=== PATIENT | male | born 1955 | race African-American/Black ===

== ENCOUNTER 2017-03-30 18:26 | Emergency (ER) | payer MEDICARE, MEDICAID ==
[~2017-03-30] VITALS: Ht 188 cm; Wt 100.0 kg
[~2017-03-30 18:26] MED LIST: AMIODARONE; ASA; ASPI-1079 PO; CALC0.25; CARV25TA47 PO; CARVEDILOL; DRON5CAP2 PO; HYDR2TAB4 PO; HYDROMORPHONE; INSLIS SQ; INSU3INS6 SUBCUT; INSULIN; LACT1CAP68 PO; LISI10TA5 PO; LISINOPRIL; METH10TA7 PO; WARF3TAB28 PO; WARFARIN; [UNRECOGNIZED DRUG - CODE]
[2017-03-30] MEDS ORDERED: IPRATROPIUM/ALBUTEROL 0.5-3(2.5)MG/3ML NEB HHN ONE (19:15)
[2017-03-30 19:46] LABS: BASOPHILS % 0.6 % (0.0-2.0); HEMATOCRIT. 26.3 % (42.0-52.0); HEMOGLOBIN. 8.4 g/dL (14.0-18.0); MEAN CORPUSCULAR HEMOGLOBIN 27.2 pg (28.0-32.0); MEAN CORPUSCULAR VOLUME 84.9 fL (80.0-94.0); MEAN PLATELET VOLUME 8.5 fl (7.4-10.4); MONOCYTES % 11.4 % (2.0-8.0); PLATELET 183 x1000/uL (130-400); RED CELL DISTRIBUTION WIDTH 20.3 % (11.6-14.6)
[2017-03-30 19:55] LABS: INR 1.4; PROTHROMBIN TIME 14.3 sec (9.4-11.6)
[2017-03-30 20:06] LABS: CARBON DIOXIDE 25 mEq/L (21-32); CHLORIDE 94 mEq/L (98-107); TROPONIN I 0.21 ng/mL (0.00-0.04)
[2017-03-30] MEDS ORDERED: DEXTROSE 50% WATER 50ML SYRINGE IV ONE (20:30)
[2017-03-31] MEDS ORDERED: GUAIFENESIN 200MG/10ML SUGAR FREE UDC PO PRN
[2017-03-31] MEDS ORDERED: DIPHENHYDRAMINE 50MG/ML VIAL IV PRN
[2017-03-31] MEDS ORDERED: LORAZEPAM 0.5MG TABLET PO PRN
[2017-03-31] MEDS ORDERED: IPRATROPIUM/ALBUTEROL 0.5-3(2.5)MG/3ML NEB INH PRN
[2017-03-31] MEDS ORDERED: DOCUSATE SODIUM 100MG CAPSULE PO PRN
[2017-03-31] MEDS ORDERED: ACETAMINOPHEN 325MG TABLET PO PRN
[2017-03-31] MEDS ORDERED: NA PHOS,M-B/NA PHOS,DI-BA ENEMA 118ML PR PRN
[2017-03-31] MEDS ORDERED: MORPHINE SULFATE 2 MG/ML CPJ (NOT FOR IM USE) IV PRN
[2017-03-31] MEDS ORDERED: MAGNESIUM/ALUMINUM HYDROXIDE/SIMETHICONE 30ML UDC PO PRN
[2017-03-31] MEDS ORDERED: CLONIDINE 0.1MG TABLET PO PRN
[2017-03-31] MEDS ORDERED: HYDROCODONE/APAP 7.5/325MG 1 TAB TABLET PO PRN
[2017-03-31] MEDS ORDERED: ONDANSETRON HCL 4MG/2ML VIAL IV PRN
[2017-03-31 00:50] VITALS: BP 143/72
== END 2017-03-31 00:30 | disposition left against medical advice (07) ==
LOC: ER 18:26 → EDBEDREQ 23:00 → ENRESERV 23:17 → CANRESERV 23:17 → CANBEDREQ 23:50 → ER 03-31 00:30
DX: I50.9 Heart failure, unspecified (principal); E87.70 Fluid overload, unspecified; I11.0 Hypertensive heart disease with heart failure; E46 Unspecified protein-calorie malnutrition; D64.9 Anemia, unspecified; I49.1 Atrial premature depolarization; I25.10 Atherosclerotic heart disease of native coronary artery without angina pectoris; Z79.01 Long term (current) use of anticoagulants; Z79.4 Long term (current) use of insulin; Z79.82 Long term (current) use of aspirin; Z88.0 Allergy status to penicillin; Z95.1 Presence of aortocoronary bypass graft
CPT/HCPCS: 36415; 71010; 80053; 82962; 83036; 83880; 84484; 85025; 85610; 87040; 93005; 94640; 96374; 99285; J7620